=== PATIENT | male | born 1950 | race Caucasian/White ===

== ENCOUNTER 2018-08-14 11:22 | Emergency (ER) | payer MEDICARE, OTHER ==
[2018-08-14 11:28] VITALS: BP 139/87
--- NOTE | 2018-08-14 12:49 | ER Document Report ---
ED Medical Screen (RME) - General Chief Complaint: Leg Pain Stated Complaint: LEG PAIN Time Seen by Provider: 08/14/18 12:38 Primary Care Provider: LOLY LEVY [Primary Care Provider] - Follow up as needed Mode of Arrival: Ambulatory Information source: Patient TRAVEL OUTSIDE OF THE [place] IN LAST 30 DAYS: No - HPI Patient complains to provider of: RIGHT LEG SWELLING Notes: 08/14/18 12:46 Patient here with complaints of right leg swelling. The patient had a hip replacement done 8 days ago. Is been having some right leg swelling since. He denies any significant pain. No fevers. No numbness, tingling, weakness. No chest pain or shortness of breath. Exam No distress, nontoxic-appearing. Swelling noted to the entire right leg. Pitting edema noted. Unable to visualize hip incision in triage. Normal pulse distally. Plan CBC, CMP, coags, x-ray of the right hip, venous Doppler of the right lower leg. An initial examination was made on the patient as part of the triage process, and it was determined a more comprehensive evaluation was necessary. Initial labs were ordered and patient was transferred to another provider in the ED who assumed care and finished evaluation and plan. - Related Data Allergies/Adverse Reactions: No Known Allergies Allergy (Verified 08/14/18 11:24) Past Medical History - Past Medical History Cardiac Medical History: Reports: Hx Hypertension Renal/ Medical History: Reports: Hx Kidney Stones. Denies: Hx Peritoneal Dialysis Musculoskeltal Medical History: Reports Hx Arthritis Past Surgical History: Reports: Hx Appendectomy, Hx Herniorrhaphy, Hx Neurologic Surgery - carpal tunnel, nerve surgery in arm, Hx Orthopedic Surgery - right hip replacement - Immunizations Immunizations up to date: Yes Hx Diphtheria, Pertussis, Tetanus Vaccination: No Physical Exam - Vital signs Vitals: Temp Pulse Resp BP Pulse Ox 98.6 F 93 18 139/87 H 93 08/14/18 11:27 08/14/18 11:27 08/14/18 11:08/14/18 11:08/14/18 11:27 Course - Vital Signs Vital signs: Temp Pulse Resp BP Pulse Ox 98.6 F 93 18 139/87 H 93 08/14/18 11:27 08/14/18 11:27 08/14/18 11:27 08/14/18 11:27 08/14/18 11:27 Doctor's Discharge - Discharge Referrals: LOCALMD,NO [Primary Care Provider] - Follow up as needed
[2018-08-14 13:15] LABS: ABSOLUTE EOSINOPHILS # (AUTO) 0.2 10^3/uL (0.0-0.6); ABSOLUTE LYMPHOCYTES (AUTO) 1.3 10^3/uL (0.5-4.7); ABSOLUTE MONOCYTES (AUTO) 0.9 10^3/uL (0.1-1.4); ABSOLUTE NEUT (AUTO) 5.5 10^3/uL (1.7-8.2); BASOPHILS % (AUTO) 0.3 % (0-2); HEMATOCRIT 38.1 % (37.9-51.0); HEMOGLOBIN 13.1 g/dL (13.5-17.0); LYMPHOCYTES % (AUTO) 17.1 % (13-45); MEAN CORPUSCULAR HGB CONC 34.5 g/dL (32.0-36.0); MEAN CORPUSCULAR VOLUME 90 fl (80-97); MONOCYTES % (AUTO) 10.8 % (3-13); PLATELET COUNT 476 10^3/uL (150-450); RED BLOOD COUNT 4.24 10^6/uL (4.35-5.55); RED CELL DISTRIBUTION WIDTH 13.4 % (11.5-14.0); SEGMENTED NEUTROPHILS % (AUTO) 69.8 % (42-78); TOTAL CELLS COUNTED % (AUTO) 100 %; WHITE BLOOD COUNT 7.9 10^3/uL (4.0-10.5)
[2018-08-14 13:20] LABS: INTERNATIONAL RATION (INR) 1.07; PARTIAL THROMBOPLASTIN TIME 35.3 SEC (23.5-35.8); PROTHROMBIN TIME 14.5 SEC (11.4-15.4)
[2018-08-14 13:38] LABS: ALANINE AMINOTRANSFERASE 62 U/L (21-72); ALBUMIN 3.9 g/dL (3.5-5.0); ALKALINE PHOSPHATASE 87 U/L (38-126); ANION GAP 10 (5-19); ASPARTATE AMINO TRANSFERASE 33 U/L (17-59); BILIRUBIN,DIRECT 0.3 mg/dL (0.0-0.4); BILIRUBIN,TOTAL 0.6 mg/dL (0.2-1.3); BLOOD UREA NITROGEN 22 mg/dL (7-20); CALCIUM 9.5 mg/dL (8.4-10.2); CARBON DIOXIDE 29 mmol/L (22-30); CHLORIDE 102 mmol/L (98-107); GLUCOSE 100 mg/dL (75-110); SODIUM 140.9 mmol/L (137-145); TOTAL PROTEIN 6.9 g/dL (6.3-8.2)
--- NOTE | 2018-08-14 13:39 | RADIOLOGY REPORT (SQ) ---
EXAM DESCRIPTION: HIP RIGHT AP/LATERAL COMPLETED DATE/TIME: 08/14/2018 1:26 pm REASON FOR STUDY: RIGHT HIP POST OP COMPARISON: None. NUMBER OF VIEWS: Three views. TECHNIQUE: AP pelvis and additional frog-leg view of the right hip. LIMITATIONS: None. FINDINGS: MINERALIZATION: Normal. RIGHT HIP: Status post total hip arthroplasty without evidence of hardware fracture, perihardware steven ency or migration. No dislocation. LEFT HIP: Mild degenerative changes. No fracture or dislocation. No worrisome bone lesions. PUBIS AND ISCHIUM: No fracture. PELVIS: No fracture. SACRUM: No fracture or dislocation. No worrisome bone lesions. LOWER LUMBAR SPINE: No fracture or dislocation. No worrisome bone lesions. Spondylotic changes are p resent. SOFT TISSUES: Surgical clips are seen within the groin. OTHER: No other significant finding. IMPRESSION: Status post right total hip arthroplasty without evidence of hardware complication. TECHNICAL DOCUMENTATION: JOB ID: [id number] [employer]- All Rights Reserved Reading location - IP/workstation name: [email or web address]
--- NOTE | 2018-08-14 14:46 | RADIOLOGY REPORT (SQ) ---
EXAM DESCRIPTION: VENOUS UNILATERAL LOWER COMPLETED DATE/TIME: 08/14/2018 2:38 pm REASON FOR STUDY: RIGHT LEG SWELLING COMPARISON: None. TECHNIQUE: Dynamic and static cummings scale and color images acquired of the right leg venous system. S elected spectral images acquired with additional compression and augmentation maneuvers. The contrala teral common femoral vein and saphenofemoral junction were also imaged. Images stored on PACS. LIMITATIONS: None. FINDINGS: COMMON FEMORAL: Normal phasicity, compression and augmentation. No visualized echogenic ma terial on cummings scale. No defects on color images. FEMORAL: Normal compression and augmentation. No visualized echogenic material on cummings scale. No defe cts on color images. POPLITEAL: Normal compression, augmentation. No visualized echogenic material on cummings scale. No defec ts on color images. CALF VESSELS: Normal compression, augmentation. No visualized echogenic material on cummings scale. No de fects on color images. GSV and SSV: Normal compression, augmentation. No visualized echogenic material on cummings scale. No def ects on color images. ANY DEEP VENOUS INSUFFICIENCY: Not evaluated. ANY EVIDENCE OF POPLITEAL CYST: No. OTHER: No other significant finding. CONTRALATERAL COMMON FEMORAL VEIN AND SAPHENOFEMORAL JUNCTION: Normal phasicity, compression and augmentation. No visualized echogenic material on cummings scale. No de fects on color images. IMPRESSION: NO EVIDENCE OF DVT OR SVT IN THE RIGHT LEG. TECHNICAL DOCUMENTATION: JOB ID: [id number] [employer]- All Rights Reserved Reading location - IP/workstation name: [email or web address]
--- NOTE | 2018-08-14 15:06 | ER Document Report ---
ED General - General Chief Complaint: Leg Pain Stated Complaint: LEG PAIN Time Seen by Provider: 08/14/18 12:38 Primary Care Provider: [facility] [Provider Group] - Follow up in 3-5 days Mode of Arrival: Ambulatory Notes: Patient is a 67-year-old male with recent total hip arthroplasty that presents to the emergency department for chief complaint of right leg swelling. Patient had a right total hip arthroplasty approximately 8 days ago, and has been having swelling in his right lower extremity essentially since the surgery, it seems to be worse at the end of the day, he has been elevating his leg and it does not improve it by the morning. He is currently taking aspirin twice daily, he is no history of DVTs in the past, no prior history of PE. He denies noting any pain associated with this or erythema. He does have hip pain related to his incisional scar, which he currently rates as a 1 out of 10, describes it is tolerable. He has been amatory since his surgery, he does have a follow-up appointment coming up next week. Past Medical History: Arthritis, hypertension Past Surgical History: Right total hip arthroplasty Social History: Denies tobacco, alcohol or drug use. Family History: Reviewed and noncontributory for presenting illness Allergies: Reviewed, see documented allergy list. REVIEW OF SYSTEMS: Other than noted above, the 12 point review of systems was reviewed with the patient and were negative, all pertinent findings are included in the HPI. PHYSICAL EXAMINATION: Vital signs reviewed, nursing noted reviewed. GENERAL: Well-appearing, well-nourished and in no acute distress. HEAD: Atraumatic, normocephalic. EYES: Eyes appear normal, extraocular movements intact, sclera anicteric, conjunctiva are normal. ENT: nares patent, oropharynx clear without exudates. Moist mucous membranes. NECK: Normal range of motion, supple without lymphadenopathy LUNGS: Breath sounds clear to auscultation bilaterally and equal. No wheezes rales or rhonchi. HEART: Regular rate and rhythm without murmurs ABDOMEN: Soft, nontender, normoactive bowel sounds. No rebound, guarding, or rigidity. No masses appreciated. EXTREMITIES: Good range of motion of all extremities including the lower extremity's bilaterally in the patient's hips bilaterally, intact pulses distally in all extremities, and equal, patient does have 1-2+ edema in the rig ht lower extremity, to the mid tibia, he does have trace edema in the left lower extremity. There is no erythema, or tenderness to palpation along the calves bilaterally. Patient has a surgical dressing over his right hip, appears to be intact, and not saturated. NEUROLOGICAL: No focal neurological deficits. Moves all extremities spontaneously Motor and sensory grossly intact on exam. PSYCH: Normal mood, normal affect. SKIN: Warm, Dry, normal turgor, no rashes or lesions noted on exposed skin TRAVEL OUTSIDE OF THE [place] IN LAST 30 DAYS: No - Related Data Allergies/Adverse Reactions: No Known Allergies Allergy (Verified 08/14/18 11:24) Past Medical History - General Information source: Patient - Social History Smoking Status: Never Smoker Family History: Reviewed & Not Pertinent Patient has suicidal ideation: No Patient has homicidal ideation: No - Past Medical History Cardiac Medical History: Reports: Hx Hypertension Renal/ Medical History: Reports: Hx Kidney Stones. Denies: Hx Peritoneal Dialysis Musculoskeletal Medical History: Reports Hx Arthritis Past Surgical History: Reports: Hx Appendectomy, Hx Herniorrhaphy, Hx Neurologic Surgery - carpal tunnel, nerve surgery in arm, Hx Orthopedic Surgery - right hip replacement - Immunizations Immunizations up to date: Yes Hx Diphtheria, Pertussis, Tetanus Vaccination: No Physical Exam - Vital signs Vitals: Temp Pulse Resp BP Pulse Ox 98.6 F 93 18 139/87 H 93 08/14/18 11:27 08/14/18 11:27 08/14/18 11:27 08/14/18 11:27 08/14/18 11:27 Course - Re-evaluation Re-evalutation: Patient seen and examined vital signs reviewed. Laboratory data and/or imaging were ordered as appropriate for the patient's presenting symptoms and complaint, with consideration of any critical or life threatening conditions that may be associated with their obtained history and exam as noted above. Results were reviewed when available and demonstrated negative duplex imaging of the lower extremity on the right, hip x-ray negative, blood work was essentially unremarkable The patient was re-evaluated and was stable Evaluation was most consistent with right lower extremity edema, status post total hip arthroplasty, I feel that this is likely expected edema, it is minimal, to the proximal tibia, patient apparently has restless leg syndrome, and recommend using compression stockings at home, continuing his home medications, and following up with his orthopedic surgeon, he apparently has a appointment next week. Results were discussed with the patient at this point, after careful consideration I feel that that patient can be discharged from the emergency department, the patient was educated treatments and reasons to return to the emergency department based on their presumed diagnosis as noted above, they were advised to followup with a primary care physician in 2-3 days. Patient was agreeable to plan of care. *Note is created using voice recognition software and may contain spelling, syntax or grammatical errors. Laboratory 08/14/18 08/14/18 08/14/18 12:53 12:53 12:53 WBC 7.9 RBC 4.24 L Hgb 13.1 L Hct 38.1 MCV 90 MCH 31.0 MCHC 34.5 RDW 13.4 Plt Count 476 H Seg Neutrophils % 69.8 Lymphocytes % 17.1 Monocytes % 10.8 Eosinophils % 2.0 Basophils % 0.3 Absolute Neutrophils 5.5 Absolute Lymphocytes 1.3 Absolute Monocytes 0.9 Absolute Eosinophils 0.2 Absolute Basophils 0.0 PT 14.5 INR 1.07 APTT 35.3 Sodium 140.9 Potassium 5.0 Chloride 102 Carbon Dioxide 29 Anion Gap 10 BUN 22 H Creatinine 0.97 Est GFR ( Amer) > 60 Est GFR (Non-Af Amer) > 60 Glucose 100 Calcium 9.5 Total Bilirubin 0.6 Direct Bilirubin 0.3 Neonat Total Bilirubin Not Reportable Neonat Direct Bilirubin Not Reportable Neonat Indirect Bili Not Reportable AST 33 ALT 62 Alkaline Phosphatase 87 Total Protein 6.9 Albumin 3.9 Hip/Pelvis X-Ray 08/14/18 12:45 IMPRESSION: Status post right total hip arthroplasty without evidence of hardware complication. Venous Doppler Study 08/14/18 12:45 IMPRESSION: NO EVIDENCE OF DVT OR SVT IN THE RIGHT LEG. - Vital Signs Vital signs: Temp Pulse Resp BP Pulse Ox 98.6 F 93 18 139/87 H 93 08/14/18 11:27 08/14/18 11:27 08/14/18 11:27 08/14/18 11:27 08/14/18 11:27 - Laboratory Result Diagrams: 08/14/18 12:53 08/14/18 12:53 Laboratory results interpreted by me: 08/14/18 08/14/18 12:53 12:53 RBC 4.24 L Hgb 13.1 L Plt Count 476 H BUN 22 H Discharge - Discharge Clinical Impression: Leg edema, right Condition: Stable Disposition: HOME, SELF-CARE Instructions: Edema, Peripheral ([facility]) Additional Instructions: Please start wearing a compression stocking, for at least 6 hours, daily, and to wear it at night. Please follow-up with the orthopedic surgeon, at your scheduled appointment. If your symptoms worsen or do not improve, do not hesitate to return to the emergency department. Referrals: [facility] [Provider Group] - Follow up in 3-5 days
== END 2018-08-14 15:25 | disposition home or self-care (01) ==
LOC: ER 11:22
DX: R60.0 Localized edema (principal); Z96.641 Presence of right artificial hip joint; I10 Essential (primary) hypertension
CPT/HCPCS: 36415; 80053; 85025; 85610; 85730; 93971; 99284